=== PATIENT | male | born 1980 | race Caucasian/White ===

== ENCOUNTER 2018-01-18 18:50 | Emergency (ER) | payer OTHER, SELFPAY ==
[2018-01-18 19:03] VITALS: BP 128/79; PULSE 63; RESP 174; TEMP 36.7; O2SAT 100; BMI 20.4
--- NOTE | 2018-01-18 19:13 | ED.LOWEXIN ---
HPI - Extremity Injury (Lower) General Chief Complaint: Extremity Injury, Lower Stated Complaint: BOAT SLID AND SCRAPED LEFT LEG Time Seen by Provider: 01/18/18 19:13 Source: patient Mode of arrival: ambulatory Limitations: no limitations History of Present Illness HPI Narrative: Otherwise healthy 37-year-old male here for evaluation of an injury sustained to his left lower extremity. Patient was cleaning a [place] while it was up on and when it when it slipped and scraped the front of his left leg. Had swelling afterwards. Came in for evaluation. Has been ambulatory. Covered it immediately afterwards. Now has had his tetanus shot within the past 5 years Related Data Previous Rx's Medication Instructions Recorded betamethasone valerate 45 gm TP BID #45 gm 07/24/17 carbamazepine [Carbatrol] 100 mg PO BID #180 cer 01/14/18 carbamazepine [Tegretol XR] 200 mg PO BID #60 tab 01/14/18 carbamazepine [Tegretol XR] 400 mg PO BID #60 tab 01/14/18 Review of Systems Constitutional Denies chills, Denies fever(s), Denies lethargy and Denies weakness Cardiovascular Denies dyspnea and Denies dyspnea on exertion Respiratory Denies cough, Denies dyspnea, Denies dyspnea on exertion and Denies wheezing Musculoskeletal Denies abnormal gait Comments: No left knee pain. No left ankle pain. Integumentary/Breasts Comments: Abrasion to left lower extremity Neurologic Denies abnormal gait, Denies focal weakness and Denies weakness Allergic/Immunologic Denies wheezing PFSH Family History Father Age: 82 Hypertension High cholesterol Stroke Social History Smoking Status: Never smoker Exam Const General: cooperative and well developed Nutritional Appearance: well nourished Orientation: alert, awake, oriented x3 and not confused Skin Other: 1 cm superficial abrasion to the distal 3rd of the anterior left leg with surrounding swelling. Neuro Other: Sensation intact to light touch left lower extremity Extrem Other: Left the unremarkable Left ankle unremarkable Tenderness to palpation over the abrasion of the left anterior manuel MDM - Extremity Injury (Lower) MDM Narrative Medical decision making narrative: Patient has been ambulatory. Can move his left knee and left ankle and full range of motion without any problems. Will hold on x-ray for now. Mechanism and the fact that he can ambulate makes me have little concern for a fracture. Patient is up-to-date on his tetanus. His abrasion is such that it does not need any suturing. We discussed care instructions. We discussed return precautions. He expressed understanding and agreement with plan Course Last Vital Signs Temp 98.1 F 01/18/18 19:03 Pulse 63 01/18/18 19:03 Resp 174 H 01/18/18 19:03 BP 128/79 H 01/18/18 19:03 Pulse Ox 100 01/18/18 19:03 Discharge Plan Departure Patient Disposition: Home, Self-Care Clinical Impression: Abrasion of leg Instructions: DI for Abrasion Activity Restrictions/Additional Instructions: Keep the area covered like we discussed. Keep the area elevated as much as possible. You can shower like normal. Return to the emergency department for any new or worsening symptoms Prescriptions: No Action betamethasone valerate 0.1 % ointment 45 gm TP BID Qty: 45 RF: 5 carbamazepine [Tegretol XR] 400 mg tablet extended release 12 hr 400 mg PO BID Qty: 60 RF: 1 carbamazepine [Carbatrol] 100 mg capsule, ER multiphase 12 hr 100 mg PO BID Qty: 180 RF: 1 carbamazepine [Tegretol XR] 200 mg tablet extended release 12 hr 200 mg PO BID Qty: 60 RF: 1
== END 2018-01-18 19:50 | disposition home or self-care (01) ==
PROVIDERS: Emergency Provider Emergency Medicine; Family Provider Family Medicine; PCP Family Medicine
DX: S80.812A Abrasion, left lower leg, initial encounter (principal); W22.8XXA Striking against or struck by other objects, initial encounter
CPT/HCPCS: 99282

== ENCOUNTER → 2018-02-25 08:57 | Outpatient (CLI) | payer OTHER, SELFPAY ==
[2018-02-26 13:07] LABS: Carbamazepine Tegretol Level 7.3 mg/L (4.0-12.0)
== END ==
PROVIDERS: PCP Family Medicine; Visit Provider Family Medicine
DX: R56.1 Post traumatic seizures (principal)
CPT/HCPCS: 36415; 80156

== ENCOUNTER 2018-03-24 15:48 | Emergency (ER) | payer OTHER, SELFPAY ==
[2018-03-24 15:50] VITALS: BP 128/98; PULSE 89; RESP 18; TEMP 35.8; O2SAT 97
--- NOTE | 2018-03-24 15:51 | ED_ITS ---
HPI - Skin/Abscess/Foreign Bdy General Chief complaint: Skin/Abscess/Foreign Body Stated complaint: bee sting right hand x2 days ago, lots of swelling Time Seen by Provider: 03/24/18 15:50 Source: patient Mode of arrival: ambulatory Limitations: no limitations History of Present Illness HPI narrative: Patient is otherwise healthy 37-year-old male who was stung by a bee 2 days ago on his right hand. Patient has had no prior reactions to bee stings. States he was stung on his ring finger and then on his hand. Little while after the actual stating he started noticing itching over the area and has had more swelling today. Related Data Previous Rx's Medication Instructions Recorded betamethasone valerate 45 gm TP BID #45 gm 07/24/17 carbamazepine ER 100 mg 100 mg PO BID #180 cer 03/11/18 capsule,extended release [id number] carbamazepine ER 200 mg 200 mg PO BID #180 tab 03/11/18 tablet,extended release,12 hr carbamazepine ER 400 mg 400 mg PO BID #180 tab 03/11/18 tablet,extended release,12 hr prednisone 40 mg PO DAILY 2 Days #4 tab 03/24/18 Review of Systems Constitutional Denies fever(s) ENT Ears, Nose, Mouth, and Throat: Denies dizziness Cardiovascular Denies dyspnea Respiratory Denies dyspnea Musculoskeletal Denies numbness Comments: No right hand pain Integumentary/Breasts Comments: Swelling to his right hand Neurologic Denies dizziness and Denies numbness Hematologic/Lymphatic Denies easy bleeding and Denies easy bruising [facility] Medical History Seizure (Chronic ~1995) Social History Smoking Status: Never smoker Exam Initial Vital Signs Initial Vital Signs: Vital Signs Temperature 96.5 F L 03/24/18 15:50 Pulse Rate 89 03/24/18 15:50 Respiratory Rate 18 03/24/18 15:50 Blood Pressure 128/98 H 03/24/18 15:50 Pulse Oximetry 97 03/24/18 15:50 Const General: cooperative, healthy appearing, comfortable, well developed, well groomed and No acute distress Orientation: alert, awake and oriented x3 Cardio Pulses: radial pulses present on the right Skin Other: Swelling to his right hand especially in the dorsum of the right hand in the ring finger. Patient does have a ring on this finger. Neuro Other: Sensation intact to light touch right upper extremity Extrem Other: Trinity of motion of the right wrist and right fingers Course Orders Ordered: Discontinued Medications Prednisone (Deltasone) 40 mg PO NOW ONE Stop: 03/24/18 17:15 Last Admin: 03/24/18 17:24 Dose: 40 mg Vital Signs - 8 hr 03/24/18 15:50 03/24/18 17:20 Temperature 96.5 F L Pulse Rate 89 83 Respiratory Rate 18 16 Blood Pressure 128/98 H Blood Pressure [Left Arm] 121/80 H Pulse Oximetry 97 99 MDM - Skin/Abscess/Foreign Bdy MDM Narrative Medical decision making narrative: Patient with what appears to be a local reaction to the bee sting on his right hand. The ring that he had on his right ring finger was removed. Patient does not have any signs of anaphylaxis. We did cause a small cut on his finger when we removed the ring. This was bandage with a 2 x 2. Patient was given care instructions. He was given a 1st dose of prednisone here in the emergency department will send home with 2 more days of the prednisone. Patient is given return precautions. He expressed understanding and agreement with plan. Discharge Plan Departure Patient Disposition: Home, Self-Care Clinical Impression: Bee sting reaction Discharge Date/Time: 03/24/18 17:30 Interventions: ED Discharge Assessment Last Done: 03/24/18 17:30 Instructions: How to Care for an Insect Bite or Sting, Insect Bites and Stings (Alternative Therapy) Activity Restrictions/Additional Instructions: Keep her right hand elevated. You can use Benadryl for any itching. Take the medications like we discussed. You can also ice her hand. Return to the emergency department for any new or worsening symptoms Prescriptions: New prednisone 20 mg tablet 40 mg PO DAILY 2 Days Qty: 4 RF: 0 No Action betamethasone valerate 0.1 % ointment 45 gm TP BID Qty: 45 RF: 5 carbamazepine [Tegretol XR] 200 mg tablet extended release 12 hr 200 mg PO BID Qty: 180 RF: 0 carbamazepine [Carbatrol] 100 mg capsule, ER multiphase 12 hr 100 mg PO BID Qty: 180 RF: 0 carbamazepine [Tegretol XR] 400 mg tablet extended release 12 hr 400 mg PO BID Qty: 180 RF: 0
--- NOTE | 2018-03-24 16:11 | PC.NURSE ---
rt hand swelling x2 days following bee sting, concern r/t 4digit swelling with ring (tungsten carbide) that pt is unable to remove, distal cms intact, tdap up to date, during exam MD removing ring with ring cutter
[2018-03-24 17:20] VITALS: BP 121/80; PULSE 83; RESP 16; O2SAT 99
[2018-03-24] MEDS: predniSONE 20 MG TABLET 40 MG PO (17:24)
== END 2018-03-24 17:30 | disposition home or self-care (01) ==
PROVIDERS: Emergency Provider Emergency Medicine; Family Provider Family Medicine; PCP Family Medicine
DX: T63.441A Toxic effect of venom of bees, accidental (unintentional), initial encounter (principal)
CPT/HCPCS: 99282; 99283

== ENCOUNTER 2018-05-23 17:29 | Emergency (ER) | payer OTHER, SELFPAY ==
[2018-05-23 17:37] VITALS: BP 132/89; PULSE 87; RESP 15; TEMP 36.2; O2SAT 100; BMI 19.9
[2018-05-23] MEDS: methylPREDNISolone 125 MG/2 ML VIAL IV (17:54)
[2018-05-23] MEDS: diphenhydrAMINE 50 MG/ML VIAL 25 MG IV (17:54)
--- NOTE | 2018-05-23 19:36 | ED.ALLEREA ---
HPI - Allergic Reaction General Chief complaint: Allergic Reaction Stated complaint: ALLERGIC REACTION TO BEE STINGS Time Seen by Provider: 05/23/18 18:00 Source: patient Mode of arrival: ambulatory Limitations: no limitations History of Present Illness HPI narrative: 37-year-old male presents with a chief complaint of a bee sting to the right ankle in a small localized reaction. He did not take any medications prior to arrival and complains of some swelling and a small amount of pain in the medial right ankle. He denies any difficulty in breathing. He denies any tongue, lip or throat swelling MD complaint: allergic reaction Onset (ago): hour(s) Symptoms: rash and itching Severity: mild Treatment prior to arrival: none Related Data Previous Rx's Medication Instructions Recorded betamethasone valerate 45 gm TP BID #45 gm 07/24/17 carbamazepine ER 100 mg 100 mg PO BID #180 cer 03/11/18 capsule,extended release [id number] carbamazepine ER 200 mg 200 mg PO BID #180 tab 03/11/18 tablet,extended release,12 hr carbamazepine ER 400 mg 400 mg PO BID #180 tab 03/11/18 tablet,extended release,12 hr prednisone See Label Instructions .ROUTE 05/23/18 .COMPLEX #30 tab Allergies Allergy/AdvReac Type Severity Reaction Status Date / Time No Known Drug Allergies Allergy Verified 05/23/18 17:37 Review of Systems Review of Systems All systems reviewed & are unremarkable except as noted in HPI and below Constitutional Denies chills, Denies fever(s), Denies lethargy and Denies weakness Eyes Denies change in vision, Denies eye discharge, Denies irritation and Denies loss of vision ENT Ears, Nose, Mouth, and Throat: Denies change in voice, Denies neck pain and Denies sore throat Cardiovascular Denies chest pain, Denies irregular heart rhythm, Denies lightheadedness, Denies palpitations, Denies dyspnea, Denies dyspnea on exertion and Denies orthopnea Respiratory Denies cough, Denies dyspnea, Denies dyspnea on exertion and Denies wheezing Gastrointestinal Gastrointestinal: Denies abdominal pain, Denies change in bowel habits, Denies diarrhea, Denies nausea and Denies vomiting Genitourinary Denies hematuria, Denies flank pain, Denies urinary incontinence and Denies urinary urgency Musculoskeletal Denies neck pain Integumentary/Breasts Reports pruritus, Denies erythema, Reports rash, Reports skin swelling and Denies wounds Neurologic Denies confusion, Denies loss of vision and Denies weakness Psychiatric Denies anxiety, Denies confusion, Denies depression, Denies homicidal ideation and Denies suicidal ideation Endocrine Denies palpitations Hematologic/Lymphatic Denies easy bruising Allergic/Immunologic Denies wheezing [facility] Medical History Seizure (Chronic ~1995) Family History Father Age: 83 Hypertension High cholesterol Stroke Social History Smoking Status: Never smoker Exam Narrative Exam Narrative: GEN: AOx3 and in mild distress EYES: Pupils are equal, round, and reactive to light and accommodation. Extraoccular muscles are intact bilaterally. There is no subconjunctival hemorrhage or exudate. CHEST: Lungs are clear to auscultation bilaterally and free of wheezes, rales, or rhonchi. Heart rate is regular rhythm, there are no murmurs, clicks, rubs, or gallops. There is no chest wall tenderness. ABD: Abdomen is soft and nontender. There is no guarding or rebound. Bowel sounds are normal in all 4 quadrants. There is no mass or organomegaly. EXT: Full painless ROM of all extremities with no loss of sensation or strength. SKIN: Minimal erythema and swelling and right medial ankle Initial Vital Signs Initial Vital Signs: Vital Signs Temperature 97.2 F L 05/23/18 17:37 Pulse Rate 87 05/23/18 17:37 Respiratory Rate 15 05/23/18 17:37 Blood Pressure 132/89 05/23/18 17:37 Pulse Oximetry 100 05/23/18 17:37 Course Orders Ordered: Discontinued Medications Diphenhydramine HCl (Benadryl) 25 mg IV NOW ONE Stop: 05/23/18 17:49 Last Admin: 05/23/18 17:54 Dose: 25 mg Methylprednisolone (Solu-Medrol 125 Mg Vial) 125 mg IV NOW ONE Stop: 05/23/18 17:49 Last Admin: 05/23/18 17:54 Dose: 125 mg Vital Signs - 8 hr 05/23/18 17:37 Temperature 97.2 F L Pulse Rate 87 Respiratory Rate 15 Blood Pressure 132/89 Pulse Oximetry 100 Discharge Plan Departure Patient Disposition: Home Clinical Impression: Allergic reaction to bee sting Discharge Date/Time: 05/23/18 20:00 Interventions: ED Discharge Assessment Last Done: 05/23/18 20:00 Instructions: DI for General Allergic Reactions Activity Restrictions/Additional Instructions: *You have been diagnosed with [ allergic reaction to bee sting ] *What to do: *Take medications as directed: Prescriptions as prescribed, including [id number] Benadryl and Pepcid *Follow up with your primary care provider in 2-3 days, call for an appointment. Let them know you were seen in the Emergency Department and that we ask that you be seen in follow up *Return to ER if you should have any new, worsening or concerning symptoms, such as [recurrence of spreading hives, difficulty with breathing, swelling of tongue, lips or throat ] Prescriptions: New prednisone 10 mg tablet See Label Instructions .ROUTE .COMPLEX Qty: 30 RF: 0 No Action betamethasone valerate 0.1 % ointment 45 gm TP BID Qty: 45 RF: 5 carbamazepine [Tegretol XR] 200 mg tablet extended release 12 hr 200 mg PO BID Qty: 180 RF: 0 carbamazepine [Carbatrol] 100 mg capsule, ER multiphase 12 hr 100 mg PO BID Qty: 180 RF: 0 carbamazepine [Tegretol XR] 400 mg tablet extended release 12 hr 400 mg PO BID Qty: 180 RF: 0
[2018-05-23 20:00] VITALS: BP 117/75; PULSE 71; RESP 16; O2SAT 100
--- NOTE | 2018-05-24 06:11 | ED_ITS ---
HPI - Allergic Reaction General Chief complaint: Allergic Reaction Stated complaint: ALLERGIC REACTION TO BEE STINGS Time Seen by Provider: 05/23/18 18:00 Source: patient Mode of arrival: ambulatory Limitations: no limitations History of Present Illness HPI narrative: 37-year-old male presents with a chief complaint of a bee sting to the right ankle in a small localized reaction. He did not take any medications prior to arrival and complains of some swelling and a small amount of pain in the medial right ankle. He denies any difficulty in breathing. He denies any tongue, lip or throat swelling MD complaint: allergic reaction Onset (ago): hour(s) Symptoms: rash and itching Severity: mild Treatment prior to arrival: none Related Data Previous Rx's Medication Instructions Recorded betamethasone valerate 45 gm TP BID #45 gm 07/24/17 carbamazepine ER 100 mg 100 mg PO BID #180 cer 03/11/18 capsule,extended release [id number] carbamazepine ER 200 mg 200 mg PO BID #180 tab 03/11/18 tablet,extended release,12 hr carbamazepine ER 400 mg 400 mg PO BID #180 tab 03/11/18 tablet,extended release,12 hr prednisone See Label Instructions .ROUTE 05/23/18 .COMPLEX #30 tab Allergies Allergy/AdvReac Type Severity Reaction Status Date / Time No Known Drug Allergies Allergy Verified 05/23/18 17:37 Review of Systems Review of Systems All systems reviewed & are unremarkable except as noted in HPI and below Constitutional Denies chills, Denies fever(s), Denies lethargy and Denies weakness Eyes Denies change in vision, Denies eye discharge, Denies irritation and Denies loss of vision ENT Ears, Nose, Mouth, and Throat: Denies change in voice, Denies neck pain and Denies sore throat Cardiovascular Denies chest pain, Denies irregular heart rhythm, Denies lightheadedness, Denies palpitations, Denies dyspnea, Denies dyspnea on exertion and Denies orthopnea Respiratory Denies cough, Denies dyspnea, Denies dyspnea on exertion and Denies wheezing Gastrointestinal Gastrointestinal: Denies abdominal pain, Denies change in bowel habits, Denies diarrhea, Denies nausea and Denies vomiting Genitourinary Denies hematuria, Denies flank pain, Denies urinary incontinence and Denies urinary urgency Musculoskeletal Denies neck pain Integumentary/Breasts Reports pruritus, Denies erythema, Reports rash, Reports skin swelling and Denies wounds Neurologic Denies confusion, Denies loss of vision and Denies weakness Psychiatric Denies anxiety, Denies confusion, Denies depression, Denies homicidal ideation and Denies suicidal ideation Endocrine Denies palpitations Hematologic/Lymphatic Denies easy bruising Allergic/Immunologic Denies wheezing [facility] Medical History Seizure (Chronic ~1995) Family History Father Age: 83 Hypertension High cholesterol Stroke Social History Smoking Status: Never smoker Exam Narrative Exam Narrative: GEN: AOx3 and in mild distress EYES: Pupils are equal, round, and reactive to light and accommodation. Extraoccular muscles are intact bilaterally. There is no subconjunctival hemorrhage or exudate. CHEST: Lungs are clear to auscultation bilaterally and free of wheezes, rales, or rhonchi. Heart rate is regular rhythm, there are no murmurs, clicks, rubs, or gallops. There is no chest wall tenderness. ABD: Abdomen is soft and nontender. There is no guarding or rebound. Bowel sounds are normal in all 4 quadrants. There is no mass or organomegaly. EXT: Full painless ROM of all extremities with no loss of sensation or strength. SKIN: Minimal erythema and swelling and right medial ankle Initial Vital Signs Initial Vital Signs: Vital Signs Temperature 97.2 F L 05/23/18 17:37 Pulse Rate 87 05/23/18 17:37 Respiratory Rate 15 05/23/18 17:37 Blood Pressure 132/89 05/23/18 17:37 Pulse Oximetry 100 05/23/18 17:37 Course Orders Ordered: Discontinued Medications Diphenhydramine HCl (Benadryl) 25 mg IV NOW ONE Stop: 05/23/18 17:49 Last Admin: 05/23/18 17:54 Dose: 25 mg Methylprednisolone (Solu-Medrol 125 Mg Vial) 125 mg IV NOW ONE Stop: 05/23/18 17:49 Last Admin: 05/23/18 17:54 Dose: 125 mg Vital Signs - 8 hr 05/23/18 17:37 Temperature 97.2 F L Pulse Rate 87 Respiratory Rate 15 Blood Pressure 132/89 Pulse Oximetry 100 Discharge Plan Departure Patient Disposition: Home Clinical Impression: Allergic reaction to bee sting Discharge Date/Time: 05/23/18 20:00 Interventions: ED Discharge Assessment Last Done: 05/23/18 20:00 Instructions: DI for General Allergic Reactions Activity Restrictions/Additional Instructions: *You have been diagnosed with [ allergic reaction to bee sting ] *What to do: *Take medications as directed: Prescriptions as prescribed, including over -the-counter Benadryl and Pepcid *Follow up with your primary care provider in 2-3 days, call for an appointment. Let them know you were seen in the Emergency Department and that we ask that you be seen in follow up *Return to ER if you should have any new, worsening or concerning symptoms , such as [recurrence of spreading hives, difficulty with breathing, swelling of tongue, lips or throat ] Prescriptions: New prednisone 10 mg tablet See Label Instructions .ROUTE .COMPLEX Qty: 30 RF: 0 No Action betamethasone valerate 0.1 % ointment 45 gm TP BID Qty: 45 RF: 5 carbamazepine [Tegretol XR] 200 mg tablet extended release 12 hr 200 mg PO BID Qty: 180 RF: 0 carbamazepine [Carbatrol] 100 mg capsule, ER multiphase 12 hr 100 mg PO BID Qty: 180 RF: 0 carbamazepine [Tegretol XR] 400 mg tablet extended release 12 hr 400 mg PO BID Qty: 180 RF: 0
== END 2018-05-23 20:00 | disposition home or self-care (01) ==
PROVIDERS: Emergency Provider Emergency Medicine; Family Provider Family Medicine; PCP Family Medicine
DX: T63.441A Toxic effect of venom of bees, accidental (unintentional), initial encounter (principal)
CPT/HCPCS: 36591; 96374; 96375; 99282; 99284; J1200; J2930

== ENCOUNTER → 2019-02-14 09:31 | Outpatient (CLI) | payer OTHER, SELFPAY ==
--- NOTE | 2019-02-14 09:34 | DI.RAD.S_ITS ---
PROCEDURE: XR ANKLE LT MIN 3V INDICATIONS: left lower leg pain, swelling TECHNIQUE: 3 views of the ankle were acquired. COMPARISON: None. FINDINGS: Bones: No fractures or dislocations. Ankle mortise is normally aligned. No suspicious bony lesions. Soft tissues: No tibiotalar joint effusion. Achilles tendon appears normal. IMPRESSION: No fracture. If the patient's pain or other symptoms persist, consider further evaluation with MRI Dictated by: Nigel Betts M.D. on 02/14/2019 at 14:08 Approved by: Nigel Betts M.D. on 02/14/2019 at 14:09
[2019-02-14 10:20] LABS: Add Manual Diff / Slide Review NO; Basophils Absolute Auto 100 /uL (0-100); Basophils Percent Auto 1.2 % (0-2); Eosinophils Absolute Auto 300 /uL (0-450); Eosinophils Percent Auto 4.7 % (2-4); Hematocrit 46.5 % (41-53); Hemoglobin 15.8 g/dL (13.5-17.5); Lymphocytes Absolute Auto 1200 /uL (1100-4500); Lymphocytes Percent Auto 20.4 % (25-40); Mean Corpuscular HGB Conc 34.1 % (30-36); Mean Corpuscular Hemoglobin 30.4 PG (26-34); Mean Corpuscular Volume 89.2 fL (80-100); Monocytes Absolute Auto 400 /uL (0-900); Monocytes Percent Auto 7.5 % (3-14); Neutrophils Absolute Auto 3800 /uL (1500-7000); Neutrophils Percent Auto 66.2 % (50-75); Platelet Count 134 X10^3/uL (150-400); Red Blood Cell Count 5.21 X10^6/uL (4.5-5.9); Red Cell Distribution Width 13.4 % (11.6-14.8); White Blood Cell Count 5.7 X10^3/uL (4.5-11.0)
== END ==
PROVIDERS: PCP Family Medicine; Visit Provider Nurse Practitioner Family
DX: M79.605 Pain in left leg (principal)
CPT/HCPCS: 36415; 73610; 85025

== ENCOUNTER → 2020-09-07 08:36 | Outpatient (CLI) | payer OTHER, SELFPAY ==
[2020-09-07 10:32] LABS: Add Manual Diff / Slide Review NO; Basophils Absolute Auto 0 /uL (0-100); Basophils Percent Auto 0.7 % (0-2); Eosinophils Absolute Auto 100 /uL (0-450); Eosinophils Percent Auto 2.2 % (2-4); Hematocrit 44.5 % (41-53); Lymphocytes Absolute Auto 1200 /uL (1100-4500); Lymphocytes Percent Auto 18.1 % (25-40); Mean Corpuscular HGB Conc 33.7 % (30-36); Monocytes Absolute Auto 400 /uL (0-900); Monocytes Percent Auto 6.7 % (3-14); Neutrophils Absolute Auto 4600 /uL (1500-7000); Neutrophils Percent Auto 72.3 % (50-75); Platelet Count 141 X10^3/uL (150-400); Red Blood Cell Count 5.01 X10^6/uL (4.5-5.9); Red Cell Distribution Width 13.1 % (11.6-14.8); White Blood Cell Count 6.4 X10^3/uL (4.5-11.0)
[2020-09-07 10:46] LABS: Alanine Aminotransferase 16 IU/L (<50); Albumin 4.2 g/dL (3.5-5.0); Albumin Globulin Ratio 1.4 (1.0-2.8); Alkaline Phosphatase 78 U/L (38-126); Aspartate Aminotransferase 21 IU/L (17-59); BUN Creatinine Ratio 19.7 (6-22); Bilirubin Total 0.2 mg/dL (0.2-1.3); Blood Urea Nitrogen 13 mg/dL (9-20); Carbon Dioxide 29 mmol/L (22-32); Chloride 107 mmol/L (98-107); Cholesterol 196 mg/dL (140-199); Estimated Glomerular Filt Rate > 60.0 mL/min (>60); Globulin 3.1 g/dL (1.7-4.1); Glucose 93 mg/dL (70-100); HDL Cholesterol 49 mg/dL (40-60); HEMOLYSIS < 15 (0-50); LDL Cholesterol Calculated 121 mg/dL (<100); Potassium 4.2 mmol/L (3.4-5.1); Sodium 140 mmol/L (137-145); Total Protein 7.3 g/dL (6.3-8.2); Triglycerides 131 mg/dL (35-150)
== END ==
PROVIDERS: PCP Family Medicine; Referring Provider Family Medicine; Visit Provider Family Medicine
DX: E78.2 Mixed hyperlipidemia (principal)
CPT/HCPCS: 36415; 80053; 80061; 85025

== ENCOUNTER → 2022-02-20 06:42 | Outpatient (CLI) | payer OTHER, SELFPAY ==
[2022-02-20 10:53] LABS: BUN Creatinine Ratio 15.7 (6-22); Blood Urea Nitrogen 11 mg/dL (9-20); Calcium 8.8 mg/dL (8.4-10.2); Carbon Dioxide 29 mmol/L (22-32); Chloride 105 mmol/L (98-107); Cholesterol 194 mg/dL (140-199); Estimated Glomerular Filt Rate > 60 mL/min (>60); Glucose 90 mg/dL (70-100); HDL Cholesterol 68 mg/dL (40-60); HEMOLYSIS 15 (0-50); LDL Cholesterol Calculated 111 mg/dL (<100); Potassium 4.4 mmol/L (3.4-5.1); Sodium 139 mmol/L (137-145); Triglycerides 77 mg/dL (35-150)
== END ==
PROVIDERS: PCP Family Medicine; Referring Provider Family Medicine; Visit Provider Family Medicine
DX: E78.2 Mixed hyperlipidemia (principal)
CPT/HCPCS: 36415; 80048; 80061

== ENCOUNTER → 2022-12-11 08:26 | Outpatient (CLI) | payer OTHER, SELFPAY ==
[2022-12-11 09:12] LABS: Add Manual Diff / Slide Review NO; Basophils Absolute Auto 100 /uL (0-100); Basophils Percent Auto 1.1 % (0-2); Eosinophils Absolute Auto 200 /uL (0-450); Eosinophils Percent Auto 5.2 % (2-4); Hematocrit 45.4 % (41-53); Hemoglobin 15.4 g/dL (13.5-17.5); Lymphocytes Absolute Auto 1100 /uL (1100-4500); Lymphocytes Percent Auto 23.8 % (25-40); Mean Corpuscular HGB Conc 33.8 % (30-36); Mean Corpuscular Volume 88.7 fL (80-100); Monocytes Absolute Auto 400 /uL (0-900); Monocytes Percent Auto 7.5 % (3-14); Neutrophils Absolute Auto 2900 /uL (1500-7000); Neutrophils Percent Auto 62.4 % (50-75); Platelet Count 120 X10^3/uL (150-400); Red Blood Cell Count 5.12 X10^6/uL (4.5-5.9); Red Cell Distribution Width 13.5 % (11.6-14.8); White Blood Cell Count 4.7 X10^3/uL (4.5-11.0)
[2022-12-11 09:49] LABS: Alanine Aminotransferase 25 IU/L (<50); Albumin 4.3 g/dL (3.5-5.0); Albumin Globulin Ratio 1.5 (1.0-2.8); Alkaline Phosphatase 65 U/L (38-126); Aspartate Aminotransferase 23 IU/L (17-59); BUN Creatinine Ratio 16.7 (6-22); Bilirubin Total 0.5 mg/dL (0.2-1.3); Blood Urea Nitrogen 12 mg/dL (9-20); Calcium 9.1 mg/dL (8.4-10.2); Carbon Dioxide 32 mmol/L (22-32); Chloride 102 mmol/L (98-107); Cholesterol 205 mg/dL (140-199); Estimated Glomerular Filt Rate > 60 mL/min (>60); Globulin 2.9 g/dL (1.7-4.1); Glucose 90 mg/dL (70-100); HDL Cholesterol 58 mg/dL (40-60); HEMOLYSIS < 15 (0-50); LDL Cholesterol Calculated 121 mg/dL (<100); Potassium 4.8 mmol/L (3.4-5.1); Sodium 139 mmol/L (137-145); Total Protein 7.2 g/dL (6.3-8.2); Triglycerides 130 mg/dL (35-150)
[2022-12-11 10:14] LABS: TSH w/ Reflex to FT4 3.65 uIU/mL (0.47-4.68)
== END ==
PROVIDERS: PCP Family Medicine; Referring Provider Family Medicine; Visit Provider Family Medicine
DX: Z13.228 Encounter for screening for other metabolic disorders (principal); Z13.29 Encounter for screening for other suspected endocrine disorder; Z13.6 Encounter for screening for cardiovascular disorders; Z13.9 Encounter for screening, unspecified
CPT/HCPCS: 36415; 80053; 80061; 84443; 85025

== ENCOUNTER → 2024-05-07 07:40 | Outpatient (CLI) | payer OTHER, SELFPAY ==
[2024-05-07 09:14] LABS: Cholesterol 177 mg/dL (140-199); HDL Cholesterol 51 mg/dL (40-60); LDL Cholesterol Calculated 111 mg/dL (<100); Triglycerides 76 mg/dL (35-150)
== END ==
PROVIDERS: PCP Family Medicine; Referring Provider Family Medicine; Visit Provider Family Medicine
DX: E78.2 Mixed hyperlipidemia (principal)
CPT/HCPCS: 36415; 80061

== ENCOUNTER → 2024-06-10 12:11 | Outpatient (CLI) | payer OTHER, SELFPAY ==
--- NOTE | 2024-06-10 12:14 | DI.RAD.S_ITS ---
PROCEDURE: XR LUMBAR SPINE 2-3V INDICATIONS: BACK PAIN TECHNIQUE: 3 views of the lumbar spine were acquired. COMPARISON: None. FINDINGS: Lumbar spine curvature and alignment: Normal. Bones: There are no osseous abnormalities. Disc spaces: Normal in height without significant degeneration. Intervertebral foramen: Grossly normal in width. Soft tissues: No soft tissue swelling, calcification or mass. IMPRESSION: Normal lumbar spine Dictated by: Gabo Vega M.D. on 06/11/2024 at 10:17 Approved by: Gabo Vega M.D. on 06/11/2024 at 10:17
[2024-06-10 14:21] LABS: Prostate Specific Antigen Scrn 1.01 ng/mL (0.1-4.0)
[2024-06-11 04:09] LABS: Carbamazepine Tegretol Level 9.9 ug/mL (4.0-12.0)
== END ==
LOC: RAD 12:12
PROVIDERS: PCP Family Medicine; Referring Provider Chiropractor; Visit Provider Chiropractor
DX: M54.50 Low back pain, unspecified (principal); Z12.5 Encounter for screening for malignant neoplasm of prostate; R56.1 Post traumatic seizures; R39.9 Unspecified symptoms and signs involving the genitourinary system; Z80.42 Family history of malignant neoplasm of prostate
CPT/HCPCS: 36415; 72100; 80156; G0103

== ENCOUNTER 2024-07-03 12:17 | Day surgery (SDC) | payer OTHER, SELFPAY ==
--- NOTE | 2024-07-03 | PATH_ITS ---
[facility] Accession Number: [id number] No. of containers..01 Tissue . 01 Material submitted: . rectum - RECTAL POLYPS X3 . 01 Diagnosis: RECTAL POLYPS, BIOPSY: Hyperplastic polyps. MRV 07/04/2024 1639 Local . 01 Electronically signed: . Pam Blankenship MD, Pathologist NPI- [id number] . 01 Gross description: . RECTAL POLYPS X3: Received in formalin are multiple fragment(s) of roman, soft tissue measuring 0.1 x 0.1 x 0.1 cm to 0.4 x 0.4 x 0.3 cm submitted entirely in 1 cassette(s) /SVEN 07/04/2024 0102 Local . 01 Pathologist provided ICD-10: D12.8 . 01 CPT . 000155 Specimen Comment: A courtesy copy of this report has been sent to [phone] Performed at: [address] [address], [place], [place] [id number] MD Malik Viera MD Phone: [phone]
[2024-07-03 12:35] VITALS: BP 143/90; PULSE 91; RESP 14; TEMP 36.3; O2SAT 98
--- NOTE | 2024-07-03 13:28 | PM.HP.1 ---
History of Present Illness History of Present Illness Date Patient Seen: 07/03/24 Time Patient Seen: 13:28 Chief complaint: Screening Colonoscopy Narrative: Robles is a 43-year-old man here for his first screening colonoscopy. No family history of colon cancer. 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) Surgical History (Updated 08/17/20 @ 10:52 by Ambrose Ochoa DO) History of orthopedic surgery H/O brain surgery Family History (Updated 06/10/24 @ 09:37 by Ambrose Ochoa DO) Father Age: 89 Hypertension High cholesterol Stroke Cancer Social History Smoking Status: Never smoker alcohol intake: never Meds Home Medications and Allergies Home Medications Medication Instructions Recorded Confirmed Type betamethasone valerate 0.1 % 1 applic topical DAILY #45 grams 02/11/24 06/10/24 Rx topical ointment carbamazepine 100 mg See Rx Instructions .Route 03/21/24 06/10/24 Rx capsule,extended release [id number] .COMPLEX #180 caps carbamazepine 200 mg See Rx Instructions .Route 03/21/24 06/10/24 Rx tablet,extended release,12 hr .COMPLEX #180 tabs cyclobenzaprine 10 mg tablet 10 mg PO TID PRN muscle spasm #30 05/21/24 06/10/24 Rx tabs epinephrine 0.3 mg/0.3 mL 0.3 mg (0.3 mL) IM ONCE #2 ea 06/10/24 06/10/24 Rx injection, auto-injector (EpiPen 2-Dario) tamsulosin 0.4 mg capsule 0.4 mg PO DAILY #90 caps 06/10/24 Rx sodium,potassium,mag sulfates 17.5 See Rx Instructions PO .COMPLEX 06/13/24 Rx gram-3.13 gram-1.6 gram oral soln #354 mL (Suprep Bowel Prep Kit) carbamazepine 400 mg 400 mg PO BID #180 tabs 06/16/24 Rx tablet,extended release,12 hr (Tegretol XR) Allergies Allergy/AdvReac Type Severity Reaction Status Date / Time No Known Drug Allergies Allergy Verified 07/03/24 12:34 Exam Vital Signs (past 8 hours): - 07/03/24 12:35 Temperature 97.4 F L Pulse Rate 91 H Respiratory Rate 14 Blood Pressure 143/90 H Pulse Oximetry 98 Oxygen Delivery Method Room Air Oxygen Delivery Method Room Air Const General: healthy appearing Assessment & Plan Assessment and plan (1) Colon cancer screening: Status: Acute Plan Colonoscopy Time-Based Coding :: [TOTAL MINUTES] spent with patient and on the chart (including review of chart, obtaining history, exam, reviewing outside data, placing orders, documenting exam and treatment plan, and counseling patient) on [DATE].
[2024-07-03 14:36] VITALS: BP 104/66; PULSE 90; RESP 16; TEMP 36.5; O2SAT 96
--- NOTE | 2024-07-03 14:36 | PM.OP.COLON ---
Operative Date/Time/Diagnoses Date of procedure: 07/03/24 Time of procedure: 14:36 Pre-op diagnosis: Colon cancer screening Post-op diagnosis: same Procedure & Clinicians Study performed: Colonoscopy Same procedure as scheduled: Yes Surgeon: Maximus Powers Procedure Notes Procedure in detail: Surgeon: Maximus Powers MD Anesthesia: Katerin Mckeon CRNA Procedure: The patient was brought to the endoscopy suite, placed in left lateral decubitus position. The patient was connected to monitoring devices. A time-out was performed. Sedation was administered. Once the patient was adequately sedated, a digital rectal exam was performed and was normal. The scope was then inserted and advanced to the cecum where the appendiceal orifice was identified and photographed. The scope was then slowly withdrawn over greater than 6 minutes. The mucosa was thoroughly inspected. There were 3 polyps in the rectum. Two of them were about 3 mm and were removed with cold forceps. The third was about 7 mm and was removed with a cold snare. The scope was retroflexed in the rectum. No other abnormalities were identified. The scope was straightened and removed. The patient was awakened and brought to recovery. Scope withdrawal time: 13 minutes Sedation time: 18 minutes EBL: 5 mL Findings: 3 small polyps in the rectum Post-procedure Disposition: PACU
[2024-07-03 14:41] VITALS: BP 109/71; PULSE 77; RESP 14; O2SAT 96
[2024-07-03 14:46] VITALS: BP 111/82; PULSE 77; RESP 12; TEMP 36.6; O2SAT 100
[2024-07-03 14:57] VITALS: BP 116/78; PULSE 72; RESP 18; O2SAT 98
== END 2024-07-03 15:10 | disposition home or self-care (01) ==
PROVIDERS: PCP Family Medicine; Referring Provider Surgery; Visit Provider Surgery
PROC: 0DJD8ZZ Inspection of Lower Intestinal Tract, Via Natural or Artificial Opening Endoscopic (ICD-10-PCS; CPT 45378; principal; 2024-07-03 13:30)
DX: Z12.11 Encounter for screening for malignant neoplasm of colon (principal); K62.1 Rectal polyp
CPT/HCPCS: 45385; 45380; J2704